=== PATIENT | female | born 1995 | race American Indian/Alaskan Native ===

== ENCOUNTER 2022-03-14 13:42 | Emergency (ER) | payer SELFPAY ==
[2022-03-14 14:40] LABS: HCG Qualitative,Urine Negative (Negative)
[2022-03-14 14:43] LABS: Bilirubin,Urine NEG (Negative); Blood,Urine MOD (Negative); Color,Urine Yellow (Yellow); Mucus,Urine FEW /HPF; Protein,Urine <15 mg/dL mg/dL (Negative); Urobilinogen,Urine < 2.0 mg/dL (<2.0)
--- NOTE | 2022-03-14 18:22 | Emergency Department Report ---
ED Female HPI - General Chief complaint: Urogenital-Female Stated complaint: VAGINAL DISCOMFORT Time Seen by Provider: 03/14/22 17:48 Source: patient Mode of arrival: Ambulatory Limitations: No Limitations - History of Present Illness Initial comments: 26-year-old black female with no past medical history presents to the emergency department for evaluation of vaginal discomfort since yesterday. She states that she has not had any vaginal discharge, vaginal bleeding, dysuria, abdominal pain, or fever. She states that she just has redness and discomfort in her vulvar area and it is even gives her some discomfort for her panties to be against her vaginal area at this time. She denies any medications at home. MD Complaint: other (Vaginal discomfort) -: Gradual, days(s) (1) Location: other Radiation: non-radiating (Vulvar area) Severity: mild Severity scale (0 -10): 2 Quality: burning Consistency: intermittent Worsens with: other (When something is touching it) Are you Now?: No - Related Data Previous Rx's Medication Instructions Recorded Last Taken Type Fluconazole 150 mg PO ONCE #1 tab 03/14/22 Unknown Rx Allergies Allergy/AdvReac Type Severity Reaction Status Date / Time No Known Allergies Allergy Verified 03/14/22 14:01 ED Review of Systems ROS: Stated complaint: VAGINAL DISCOMFORT Other details as noted in HPI Constitutional: denies: chills, fever Respiratory: denies: shortness of breath Cardiovascular: denies: chest pain, palpitations Gastrointestinal: denies: abdominal pain, nausea, vomiting, diarrhea, hematemesis, melena, hematochezia Genitourinary: denies: urgency, dysuria, frequency, hematuria, discharge, abnormal menses Musculoskeletal: denies: back pain Skin: denies: rash, lesions Neurological: denies: headache, weakness ED Past Medical Hx - Past Medical History Previous Medical History?: No - Surgical History Past Surgical History?: No - Social History Smoking Status: Never Smoker Substance Use Type: None - Medications Home Medications: Home Medications Medication Instructions Recorded Confirmed Last Taken Type Fluconazole 150 mg PO ONCE #1 tab 03/14/22 Unknown Rx ED Physical Exam - General Limitations: No Limitations General appearance: alert, in no apparent distress - Head Head exam: Present: atraumatic, normocephalic - Eye Eye exam: Present: normal appearance. Absent: conjunctival injection - Neck Neck exam: Present: normal inspection, full ROM. Absent: lymphadenopathy - Respiratory Respiratory exam: Present: normal lung sounds bilaterally. Absent: respiratory distress, wheezes, rales, rhonchi, stridor, chest wall tenderness - Cardiovascular Cardiovascular Exam: Present: regular rate, normal heart sounds - GI/Abdominal GI/Abdominal exam: Present: soft, normal bowel sounds. Absent: distended, tenderness, guarding, rebound, rigid - External exam: Present: erythema, swelling, other (Trace thick white discharge noted) - Extremities Exam Extremities exam: Present: normal inspection, normal capillary refill. Absent: pedal edema, joint swelling, calf tenderness - Back Exam Back exam: Present: normal inspection. Absent: CVA tenderness (R), CVA tenderness (L), vertebral tenderness - Neurological Exam Neurological exam: Present: alert, oriented X3, normal gait - Psychiatric Psychiatric exam: Present: normal affect, normal mood - Skin Skin exam: Present: warm, dry, intact, normal color ED Course Vital Signs 03/14/22 03/14/22 14:02 17:53 Temperature 98.7 F 98.2 F Pulse Rate 99 H 83 Respiratory 16 20 Rate Blood Pressure 123/53 Blood Pressure 119/75 [Right] O2 Sat by Pulse 98 99 Oximetry ED Medical Decision Making - Medical Decision Making 26-year-old black female with no past medical history presents to the emergency department for evaluation of vaginal discomfort since yesterday. She states that she has not had any vaginal discharge, vaginal bleeding, dysuria, abdominal pain, or fever. She states that she just has redness and discomfort in her vulvar area and it is even gives her some discomfort for her panties to be against her vaginal area at this time. She denies any medications at home. Symptoms and exam consistent with yeast vaginitis. Patient will be treated with a prescription for a one-time dose of Diflucan 150 mg. She is advised to take medications as prescribed and follow-up with [facility] or primary care provider if no improvement or worsening symptoms. She verbalized understanding of and agreement with plan of care. Critical care attestation.: If time is entered above; I have spent that time in minutes in the direct care of this critically ill patient, excluding procedure time. ED Disposition Clinical Impression: Yeast vaginitis Disposition: HOME / SELF CARE / HOMELESS Is pt being admited?: No Does the pt Need Aspirin: No Condition: Stable Instructions: Vaginitis, [id number], Vaginal Yeast Infection, Adult, Probiotics Additional Instructions: Take medication as prescribed. Follow-up with primary care provider or [facility] if no improvement or worsening symptoms. Return to the emergency department as needed. Prescriptions: Fluconazole 150 mg PO ONCE #1 tab Referrals: CHLOÉ YU MD [Staff Physician] - 3-5 Days Forms: Work/School Release Form(ED) Time of Disposition: 18:22
[2022-03-14 19:05] VITALS: BP 124/78
== END 2022-03-14 19:05 | disposition home or self-care (01) ==
LOC: ED 13:42
DX: B37.3 Candidiasis of vulva and vagina (principal); Z79.899 Other long term (current) drug therapy
CPT/HCPCS: 81001; 81025; 99283